=== PATIENT | female | born 1975 | race Two or more races ===

== ENCOUNTER 2021-10-10 08:42 | Outpatient (CLI) | payer OTHER | END 2021-10-10 08:51 | disposition home or self-care (01) | LOC: RX STUDY 08:42 | PROVIDERS: ATTEND Surgery | DX: K56.50 Intestinal adhesions [bands], unspecified as to partial versus complete obstruction (principal) ==

== ENCOUNTER 2022-11-12 08:28 | Outpatient (CLI) | payer OTHER | END 2022-11-12 08:31 | disposition home or self-care (01) | LOC: SONOGRAMA 08:28 | PROVIDERS: ATTEND Pathology Anatomic Pathology | DX: D34 Benign neoplasm of thyroid gland (principal); E04.9 Nontoxic goiter, unspecified; E04.1 Nontoxic single thyroid nodule ==